=== PATIENT | female | born 1980 | race Asian ===

== ENCOUNTER 2017-07-23 12:43 | Emergency (ER) | payer MEDICAID ==
--- NOTE | 2017-07-23 14:19 | EDM.PDOC ---
ED HPI GENERAL MEDICAL PROBLEM - General Chief Complaint: Respiratory Problem Stated Complaint: DIFFICULTY BREATHING Time Seen by Provider: 07/23/17 12:59 Source of Information: Reports: Patient, RN Notes Reviewed - History of Present Illness INITIAL COMMENTS - FREE TEXT/NARRATIVE: 37 year old female with sensation of dyspnea, tightness across anterior chest, mild to moderate discomfort anterior chest with deep breathing. No cough, fever , chills or sore throat. No recent surgery. No leg swelling or discomfort. No abd pain, nausea or vomiting. Has been having similar sx off and on for more than 1 week, recently started on protonix. Upper Abdomen Pain Score (Numeric/FACES): 5 - Related Data Allergies Allergy/AdvReac Type Severity Reaction Status Date / Time No Known Allergies Allergy Verified 07/23/17 12:54 Home Meds: Home Meds Cholecalciferol (Vitamin D3) [Vitamin D] 1,000 unit PO DAILY 07/23/17 [History] L.acidoph,Paracasei, B.lactis [Probiotic] 1 cap PO DAILY 07/23/17 [History] Multivitamin [Daily Multiple Vitamin] 1 tab PO DAILY 07/23/17 [History] Pantoprazole Sodium [Protonix] 40 mg PO DAILY 07/23/17 [History] Past Medical History Gastrointestinal History: Reports: Helicobacter Pylori - Past Surgical History Female Surgical History: Reports: D&C, Other (See Below) Other 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 Denies: Wheezing, Cough, Hemoptysis Cardiovascular: Reports: Chest Pain (she does have some tightness across anterior chest without radiation) GI/Abdominal: Denies: Abdominal Pain Musculoskeletal: Reports: No Symptoms. Denies: Shoulder Pain, Arm Pain Skin: Reports: No Symptoms. Denies: Rash Neurological: Denies: Dizziness, Numbness, Tingling ED EXAM, GENERAL - Physical Exam Exam: See Below General Appearance: Alert, No Apparent Distress Eye Exam: Bilateral Eye: PERRL Throat/Mouth: Normal Inspection Neck: Supple, Full Range of Motion Respiratory/Chest: No Respiratory Distress, Lungs Clear, Normal Breath Sounds Cardiovascular: Regular Rate, Rhythm GI/Abdominal: Soft, Tender (mild tenderness upper mid abd) Back Exam: No: CVA Tenderness (L), CVA Tenderness (R) Extremities: Normal Inspection, Normal Range of Motion. No: Pedal Edema, Leg Pain Neurological: Alert, No Motor/Sensory Deficits Skin Exam: Warm, Dry, Normal Color Course - Vital Signs Last Recorded V/S: Last Vital Signs Temp 97.3 F 07/23/17 12:59 Pulse 65 07/23/17 12:59 Resp 20 07/23/17 12:59 BP 133/84 07/23/17 12:59 Pulse Ox 100 07/23/17 12:59 - Orders/Labs/Meds Labs: Laboratory Tests 07/23/17 07/23/17 07/23/17 Range/Units 13:40 13:40 13:40 WBC 7.19 (3.98-10.04) K/mm3 RBC 4.69 (3.98-5.22) M/mm3 Hgb 13.1 (11.2-15.7) gm/L Hct 39.5 (34.1-44.9) % MCV 84.2 (79.4-94.8) fl MCH 27.9 (25.6-32.2) pg MCHC 33.2 (32.2-35.5) g/dl RDW Std Deviation 42.4 (36.4-46.3) fL Plt Count 247 (182-369) K/mm3 MPV 10.4 (9.4-12.3) fl Neut % (Auto) 62.7 (34.0-71.1) % Lymph % (Auto) 28.0 (19.3-51.7) % [place] % (Auto) 8.1 (4.7-12.5) % Eos % (Auto) 0.6 L (0.7-5.8) Baso % (Auto) 0.3 (0.1-1.2) % Neut # (Auto) 4.52 (1.56-6.13) K/mm3 Lymph # (Auto) 2.01 (1.18-3.74) K/mm3 [place] # (Auto) 0.58 H (0.24-0.36) K/mm3 Eos # (Auto) 0.04 (0.04-0.36) K/mm3 Baso # (Auto) 0.02 (0.01-0.08) K/mm3 D-Dimer, Quantitative 0.44 (0.19-0.59) mg/L Troponin I < 0.017 (0.00-0.056) ng/mL - Re-Assessments/Exams Free Text/Narrative Re-Assessment/Exam: 07/26/17 10:15 WBC, D dimer, trop all normal, discharge instr. as documented. Departure - Departure Time of Disposition: 15:46 Disposition: Home, Self-Care 01 Condition: Fair Clinical Impression: Atypical chest pain - Discharge Information Instructions: Nonspecific Chest Pain, [id number] Referrals: Cynthia Coulter PA-C [Primary Care Provider] - Forms: ED Department Discharge Additional Instructions: continue protonix, probiotic for now, Your heart and lungs are checking out well today, echocardiogram, Radiology will call you tomorrow AM for appt. for that.
--- NOTE | 2017-07-24 08:00 | CR ---
Chest: Frontal view of the chest was obtained. Comparison: Prior chest x-ray is not available. Heart size and mediastinum are normal. Slight parenchymal density seen within the left midlung most likely due to confluence of vascular markings or atelectasis. Lungs otherwise are clear. Bony structures are grossly intact. Impression: 1. Nothing acute is appreciated on two-view chest x-ray. Diagnostic code #2
== END 2017-07-23 16:06 | disposition home or self-care (01) ==
LOC: JD.ED 12:43
DX: R07.89 Other chest pain (principal); F17.210 Nicotine dependence, cigarettes, uncomplicated; Z79.899 Other long term (current) drug therapy
CPT/HCPCS: 36415; 71045; 71045-26; 84484; 85025; 85379; 93005; 99283; 99285-25

== ENCOUNTER 2017-09-28 07:02 | Day surgery (SDC) | payer MEDICAID ==
[~2017-09-28 07:02] MED LIST: Lactated Ringers 1,000 ML IV SCH; Lidocaine 1%/Sod Bicarbonate in NS 8.4% 1 ML Syringe IDERM PRN; Sodium Chloride 0.9% 10 ML Syringe FLUSH PRN
[2017-09-28] MEDS ORDERED: Lidocaine 1% 4 ML ONE (07:13)
[2017-09-28] MEDS ORDERED: Propofol 200 MG/20 ML SDV ONE (07:14)
[2017-09-28] MEDS ORDERED: Midazolam 1 MG/ML 2 ML SDV ONE (07:14)
[2017-09-28] MEDS ORDERED: fentaNYL 100 MCG/2 ML SDV ONE (07:14)
--- NOTE | 2017-09-28 07:41 | PCM.PREANE ---
Preanesthetic Assessment - Procedure Proposed Procedure: diag egd and colonoscopy - Anesthesia/Transfusion/Family Hx Anesthesia History: Prior Anesthesia Without Reaction Family History of Anesthesia Reaction: No Transfusion History: No Prior Transfusion(s) - Review of Systems General: No Symptoms Pulmonary: Shortness of Breath (at rest periodically) Cardiovascular: Chest Pain (2-3 times a week), Palpitations (2-3 times a week) Gastrointestinal: Diarrhea Neurological: No Symptoms Other: Reports: Depression, Anxiety - Physical Assessment NPO Status Date: 09/27/17 NPO Status Time: 23:00 O2 Sat by Pulse Oximetry: 98 Respiratory Rate: 16 Vital Signs: Last Vital Signs Temp 98.7 F 09/28/17 07:10 Pulse 75 09/28/17 07:10 Resp 16 09/28/17 07:10 BP 136/77 09/28/17 07:10 Pulse Ox 98 09/28/17 07:10 Height: 5 ft 4 in Weight: 74.389 kg ASA Class: 2 Mental Status: Alert & Oriented x3 Airway Class: Mallampati = 1 Dentition: Reports: Normal Dentition Thyro-Mental Finger Breadths: 3 Mouth Opening Finger Breadths: 3 ROM/Head Extension: Full Lungs: Clear to Auscultation, Normal Respiratory Effort Cardiovascular: Regular Rate, Regular Rhythm - Lab Values: Laboratory Last Values Urine HCG, Qual Negative (NEGATIVE) 09/28/17 07:10 - Allergies Allergies/Adverse Reactions: Allergies Allergy/AdvReac Type Severity Reaction Status Date / Time cat dander Allergy Difficulty Verified 09/27/17 12:10 Breathing peanut Allergy Anaphylactic Verified 09/27/17 12:10 Shock - Blood Blood Available: No - Acknowledgements Anesthesia Type Planned: MAC Pt an Appropriate Candidate for the Planned Anesthesia: Yes Alternatives and Risks of Anesthesia Discussed w Pt/Guardian: Yes Pt/Guardian Understands and Agrees with Anesthesia Plan: Yes PreAnesthesia Questionnaire HEENT History: Reports: Impaired Vision, Other (See Below) (contacts are in- slept with them before) Cardiovascular History: Reports: Other (See Below) Other Cardiovascular History: chest pain, shortness of breath Respiratory History: Reports: SOB Gastrointestinal History: Reports: Helicobacter Pylori, Other (See Below) Other Gastrointestinal History: hematchezia, umbilical hernia Genitourinary History: Reports: Renal Calculus 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 Musculoskeletal History: Reports: None Neurological History: Reports: None Psychiatric History: Reports: Anxiety, Depression Endocrine/Metabolic History: Reports: None Hematologic History: Reports: None Immunologic History: Reports: None Oncologic (Cancer) History: Reports: None Dermatologic History: Reports: None - Past Surgical History Head Surgeries/Procedures: Reports: None HEENT Surgical History: Reports: None Respiratory Surgical History: Reports: None GI Surgical History: Reports: None Female Surgical History: Reports: D&C, Other (See Below) Other Female Surgeries/Procedures: urethral stent was placed during , removed shortly after Endocrine Surgical History: Reports: None Neurological Surgical History: Reports: None Musculoskeletal Surgical History: Reports: None Oncologic Surgical History: Reports: None Dermatological Surgical History: Reports: None - SUBSTANCE USE Smoking Status *Q: Current Every Day Smoker Tobacco Use Within Last Twelve Months: Cigarettes Second Hand Smoke Exposure: Yes Days Per Week of Alcohol Use: 0 (rarely) Recreational Drug Use History: No - HOME MEDS Home Medications: Home Meds Multivitamin [Daily Multiple Vitamin] 1 tab PO DAILY 07/23/17 [History] Pantoprazole Sodium [Protonix] 40 mg PO DAILY 07/23/17 [History] Albuterol Sulfate [Proair Hfa] 2 puff INH Q4H PRN 09/27/17 [History] Budesonide/Formoterol Fumarate [Symbicort 160-4.5 Mcg Inhaler] 2 puff INH BID [History] Calcium Carbonate [Calcium] 500 mg PO Q48H 09/27/17 [History] Cetirizine [ZyrTEC] 10 mg PO DAILY 09/27/17 [History] Cholecalciferol (Vitamin D3) [Vitamin D3] 2,000 unit PO Q48H 09/27/17 [History] Fish Oil/[place]-3 Fatty Acids [Fish Oil 1,000 MG] 1 gm PO Q48H 09/27/17 [History] LORazepam [Ativan] 0.5 mg PO TID PRN 09/27/17 [History] Montelukast [Singulair] 10 mg PO DAILY 09/27/17 [History] Triamcinolone Acetonide [Triamcinolone Acetonide 0.1% Oint] 1 dose TOP BID PRN 09/27/17 [History] - CURRENT (IN HOUSE) MEDS Current Meds: Current Medications Lactated Ringer's (Ringers, Lactated) 1,000 mls @ 125 mls/hr IV ASDIRECTED KASANDRA Stop: 09/28/17 23:00 Last Admin: 09/28/17 07:25 Dose: 125 mls/hr Lidocaine/Sodium Bicarbonate (Buffered Lidocaine 1% In Ns 8.4%) 0.25 ml IDERM ONETIME PRN PRN Reason: Prior to IV Start Stop: 09/28/17 18:00 Last Admin: 09/28/17 07:25 Dose: 0.25 ml Sodium Chloride (Saline Flush) 10 ml FLUSH ASDIRECTED PRN PRN Reason: Keep Vein Open Stop: 09/28/17 18:00 Discontinued Medications Fentanyl (Sublimaze) Confirm Administered Dose 100 mcg .ROUTE .STK-MED ONE Stop: 09/28/17 07:15 Lidocaine HCl (Xylocaine-Mpf 1%) Confirm Administered Dose 4 mls @ as directed .ROUTE .STK-MED ONE Stop: 09/28/17 07:14 Midazolam HCl (Versed 1 Mg/Ml) Confirm Administered Dose 2 mg .ROUTE .STK-MED ONE Stop: 09/28/17 07:15 Propofol (Diprivan 20 Ml) Confirm Administered Dose 400 mg .ROUTE .STK-MED ONE Stop: 09/28/17 07:15
--- NOTE | 2017-09-28 08:51 | PCM.OPNOTE ---
- General Post-Op/Procedure Note Date of Surgery/Procedure: 09/28/17 Operative Procedure(s): egd with bx/colonoscopy Pre Op Diagnosis: change in bowel habits and epigastric pain Post-Op Diagnosis: Same Anesthesia Technique: MAC Primary Surgeon: Arnold Stout EBL in mLs: 0 Complications: None Condition: Good
[2017-09-28] MEDS ORDERED: Ondansetron 4 MG/2 ML SDV IVPUSH PRN (08:56)
--- NOTE | 2017-09-28 08:58 | PCM48HPAN ---
Post Anesthesia Note - EVALUATION WITHIN 48HRS OF ANESTHETIC Vital Signs in Normal Range: Yes Patient Participated in Evaluation: Yes Respiratory Function Stable: Yes Airway Patent: Yes Cardiovascular Function Stable: Yes Hydration Status Stable: Yes Pain Control Satisfactory: Yes Nausea and Vomiting Control Satisfactory: Yes Mental Status Recovered: Yes Pulse Rate: 70 SaO2: 97 Resp Rate: 16 Temperature: 97.5 F Blood Pressure: 117/72
--- NOTE | 2017-09-28 09:38 | OR ---
DATE OF OPERATION: 09/28/2017 SURGEON: Arnold Stout MD PREOPERATIVE DIAGNOSIS: Epigastric pain. POSTOPERATIVE DIAGNOSIS: Epigastric pain. OPERATION PERFORMED: Esophagogastroduodenoscopy with biopsy done under IV sedation. FINDINGS: Second portion of the duodenum, duodenal bulb, pyloric channel were normal. Antrum, body, and cardia of the stomach and fundus did not show any pathology. Biopsies were done of the antrum looking for H. pylori because of previous history. J-maneuver showed just a very small sliding hiatal hernia at the GE junction. Scope was withdrawn at the GE junction, which was sharp and free of any acute pathology, located at 40 cm. Rest of the esophagus was viewed, the scope withdrawn, was normal. DESCRIPTION OF PROCEDURE: The patient was taken to the endoscopy room, placed in supine position, connected to monitoring equipment, given IV sedation. Placed in left lateral position. Bite block was inserted. Video Olympus gastroscope was placed in the posterior oropharynx, under direct vision threaded past the cricopharyngeus, down the esophagus, into the stomach. It was then advanced through the pylorus and 2nd portion of the duodenum, slowly withdrawn showing normal study as detailed above. J-maneuver was performed and biopsy of the antrum was done. The patient tolerated the procedure and IV sedation continued for colonoscopy. ANESTHESIA: ESTIMATED BLOOD LOSS: MMODAL /[id number]
--- NOTE | 2017-09-29 07:22 | OR ---
DATE OF OPERATION: 09/28/2017 SURGEON: Arnold Stout MD PREOPERATIVE DIAGNOSIS: Change in bowel habits. POSTOPERATIVE DIAGNOSIS: Change in bowel habits. OPERATION PERFORMED: Colonoscopy to cecum. FINDINGS: Normal study. DESCRIPTION OF PROCEDURE: The patient was taken to the endoscopy room and connected monitoring equipment, given IV sedation for upper GI endoscopy. This was continued for colonoscopy. The patient placed in left lateral position. Perianal area was inspected and was normal. Rectal exam showed good sphincter tone. Video Olympus colonoscope was then introduced into the rectum and threaded up without problem to the cecum, where the appendicular orifice and ileocecal valve were noted. Prep was excellent. [place] Cleansing score grade A and the scope throughout the colon. The scope was slowly withdrawn showing the cecum and beginning of the ileum. The ascending colon, transverse colon, descending colon, sigmoid colon, and rectum, all this was normal. The patient tolerated the procedure, sent to recovery room in a stable condition, will be followed up as needed in the clinic. ANESTHESIA: ESTIMATED BLOOD LOSS: MMODAL /[id number]
== END 2017-09-28 09:40 | disposition home or self-care (01) ==
LOC: JD.SDS 07:02
PROVIDERS: ATTEND Surgery
DX: R19.4 Change in bowel habit (principal); R10.13 Epigastric pain; K42.9 Umbilical hernia without obstruction or gangrene; F41.9 Anxiety disorder, unspecified; F32.9 Major depressive disorder, single episode, unspecified; Z87.891 Personal history of nicotine dependence; Z79.899 Other long term (current) drug therapy; Z91.010 Allergy to peanuts; Z91.048 Other nonmedicinal substance allergy status; Z98.890 Other specified postprocedural states
CPT/HCPCS: 00813; 81025; J2001; J2250; J2704; J3010; J7120

== ENCOUNTER 2018-06-04 10:34 | Emergency (ER) | payer MEDICAID ==
[2018-06-04] MEDS ORDERED: methylPREDNISolone Sodium Succinate 125 MG/2 ML SDV IVPUSH ONE (11:19)
[2018-06-04] MEDS ORDERED: Sodium Chloride 0.9% 1,000 ML IV ONE (11:19)
[2018-06-04] MEDS ORDERED: diphenhydrAMINE 50 MG/ML SDV IVPUSH ONE (11:19)
[2018-06-04] MEDS ORDERED: Famotidine 20 MG/2 ML SDV IVPUSH ONE (11:19)
[2018-06-04] MEDS ORDERED: Sodium Chloride 0.9% 10 ML Syringe FLUSH PRN (11:19)
--- NOTE | 2018-06-04 11:21 | EDM.PDOC ---
ED HPI GENERAL MEDICAL PROBLEM - General Chief Complaint: Allergic Reaction Stated Complaint: ALLERGIC RX Time Seen by Provider: 06/04/18 11:10 Source of Information: Reports: Patient History Limitations: Reports: Intoxication - History of Present Illness INITIAL COMMENTS - FREE TEXT/NARRATIVE: 38-year-old female presents for evaluation and treatment of an allergic reaction. Patient reports she has anaphylactic reaction to peanuts. She does not have an EpiPen, cites the cost is the concerned as to why she hasn't have this. She states that she Matthew food which reportedly did not have peanuts in it, however, acknowledges that the restaurant she was at uses peanuts. She reports that her lips feel swollen, she feels itchy and she feels that her throat is swelling. She denies any chest pain, nausea or vomiting. Denies any hives but has blotchiness to her face. No treatments prior to arrival in the ER. Primary care provider is Cynthia Coulter. Onset: Today - Related Data Allergies Allergy/AdvReac Type Severity Reaction Status Date / Time cat dander Allergy Difficulty Verified 06/04/18 10:40 Breathing peanut Allergy Anaphylactic Verified 06/04/18 10:40 Shock Home Meds: Home Meds Multivitamin [Daily Multiple Vitamin] 1 tab PO DAILY 07/23/17 [History] Pantoprazole Sodium [Protonix] 40 mg PO DAILY 07/23/17 [History] Albuterol Sulfate [Proair Hfa] 2 puff INH Q4H PRN 09/27/17 [History] Budesonide/Formoterol Fumarate [Symbicort 160-4.5 Mcg Inhaler] 2 puff INH BID [History] Calcium Carbonate [Calcium] 500 mg PO Q48H 09/27/17 [History] Cetirizine [ZyrTEC] 10 mg PO DAILY 09/27/17 [History] Cholecalciferol (Vitamin D3) [Vitamin D3] 2,000 unit PO Q48H 09/27/17 [History] Fish Oil/[place]-3 Fatty Acids [Fish Oil 1,000 MG] 1 gm PO Q48H 09/27/17 [History] LORazepam [Ativan] 0.5 mg PO TID PRN 09/27/17 [History] Montelukast [Singulair] 10 mg PO DAILY 09/27/17 [History] Triamcinolone Acetonide [Triamcinolone Acetonide 0.1% Oint] 1 dose TOP BID PRN 09/27/17 [History] EPINEPHrine [Epinephrine] 0.15 mg IJ ASDIRECTED PRN #2 auto.injct 06/04/18 [Rx] Famotidine [Pepcid] 20 mg PO DAILY #7 tab 06/04/18 [Rx] predniSONE [Prednisone] 20 mg PO BID #10 tablet 06/04/18 [Rx] Past Medical History HEENT History: Reports: Impaired Vision, Other (See Below) Cardiovascular History: Reports: Other (See Below) Other Cardiovascular History: chest pain, shortness of breath Respiratory History: Reports: SOB Gastrointestinal History: Reports: Helicobacter Pylori, Other (See Below) Other Gastrointestinal History: hematchezia, umbilical hernia Genitourinary History: Reports: Renal Calculus 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 Musculoskeletal History: Reports: None Neurological History: Reports: None Psychiatric History: Reports: Anxiety, Depression Endocrine/Metabolic History: Reports: None Hematologic History: Reports: None Immunologic History: Reports: None Oncologic (Cancer) History: Reports: None Dermatologic History: Reports: None - Past Surgical History Head Surgeries/Procedures: Reports: None HEENT Surgical History: Reports: None Respiratory Surgical History: Reports: None GI Surgical History: Reports: None Female Surgical History: Reports: D&C, Other (See Below) Other Female Surgeries/Procedures: urethral stent was placed during , removed shortly after Endocrine Surgical History: Reports: None Neurological Surgical History: Reports: None Musculoskeletal Surgical History: Reports: None Oncologic Surgical History: Reports: None Dermatological Surgical History: Reports: None Social & Family History - Tobacco Use Smoking Status *Q: Current Every Day Smoker Years of Tobacco use: 15 Packs/Tins Daily: 0.5 - Caffeine Use Caffeine Use: Reports: None - Recreational Drug Use Recreational Drug Use: No ED ROS ALLERGIC REACTION - Review of Systems Review Of Systems: See Below HEENT: Reports: Throat Swelling, Other (reports swelling to her lips) Respiratory: Denies: Shortness of Breath Cardiovascular: Denies: Chest Pain GI/Abdominal: Denies: Nausea, Vomiting Skin: Reports: Pruritis, Rash ED EXAM GENERAL NO PERIP PULSE - Physical Exam Exam: See Below Exam Limited By: No Limitations General Appearance: Alert, WD/WN, No Apparent Distress Throat/Mouth: Normal Inspection, Normal Voice, No Airway Compromise, Other ( minimal swelling to the lips, no uvula swelling, no horseness of voice) Head: Atraumatic, Normocephalic Neck: Normal Inspection Respiratory/Chest: No Respiratory Distress, Lungs Clear, Normal Breath Sounds Cardiovascular: Normal Peripheral Pulses, Regular Rate, Rhythm, No Murmur Neurological: Alert, Oriented, Normal Cognition Psychiatric: Normal Affect, Normal Mood Skin Exam: Warm, Dry, Normal Color, Rash (blotches and hive like rash to the anterior neck) Course - Vital Signs Last Recorded V/S: Last Vital Signs Temp 97.1 F 06/04/18 10:38 Pulse 90 06/04/18 14:32 Resp 18 06/04/18 14:32 BP 154/100 H 06/04/18 14:32 Pulse Ox 99 06/04/18 14:32 - Orders/Labs/Meds Orders: Active Orders 24 hr Category Date Time Status Cardiac Monitoring [RC] . DIRECTED Care 06/04/18 11:19 Active Peripheral IV Care [RC] . DIRECTED Care 06/04/18 11:19 Active Peripheral IV Insertion Adult [OM.PC] Routine Oth 06/04/18 11:19 Ordered Meds: Medications Discontinued Medications Generic Name Dose Route Start Last Admin Trade Name Freq PRN Reason Stop Dose Admin Diphenhydramine HCl 50 mg 06/04/18 11:19 06/04/18 11:36 Benadryl IVPUSH 06/04/18 11:20 50 mg ONETIME ONE Administration Famotidine 20 mg 06/04/18 11:19 06/04/18 11:36 Pepcid IVPUSH 06/04/18 11:20 20 mg ONETIME ONE Administration Sodium Chloride 1,000 mls @ 999 mls/hr 06/04/18 11:19 06/04/18 11:36 Normal Saline IV 06/04/18 12:19 999 mls/hr ONETIME ONE Administration Methylprednisolone Sodium Succinate 125 mg 06/04/18 11:19 06/04/18 11:35 Solu-Medrol IVPUSH 06/04/18 11:20 125 mg ONETIME ONE Administration Sodium Chloride 10 ml 06/04/18 11:19 06/04/18 11:36 Saline Flush FLUSH 10 ml ASDIRECTED PRN Administration Keep Vein Open - Re-Assessments/Exams Free Text/Narrative Re-Assessment/Exam: 06/04/18 13:19 Checked on the patient. Reports throat swelling has resolved. The hives some blotchiness to her chest have resolved. She said complains of swelling to her lips and has only minor swelling appreciated. Plan will be continue to monitor and give remainder of fluids. Will likely discharge home with prednisone, H2 martha and antihistamine 06/04/18 13:51 Symptoms have nearly completely resolved. Patient is anxious to go home. Will discharge home at this time. Discharge instructions as documented. Departure - Departure Time of Disposition: 13:51 Disposition: Home, Self-Care 01 Condition: Fair Clinical Impression: Allergic reaction - Discharge Information *PRESCRIPTION DRUG MONITORING PROGRAM REVIEWED*: No *COPY OF PRESCRIPTION DRUG MONITORING REPORT IN PATIENT SOLO: No Prescriptions: EPINEPHrine [Epinephrine] 0.15 mg IJ ASDIRECTED PRN #2 auto.injct PRN Reason: Allergies Famotidine [Pepcid] 20 mg PO DAILY #7 tab predniSONE [Prednisone] 20 mg PO BID #10 tablet Instructions: Food Allergy, [id number] Referrals: Cynthia Coulter PA-C [Primary Care Provider] - Forms: ED Department Discharge Additional Instructions: Use the EpiPen as prescribed. Inject 1 at onset of symptoms, repeat 5-15 minutes later if symptoms persist. Take the prednisone as prescribed. 1 tab twice a day for 10 days. Take the Pepcid as prescribed, 1 tab daily for 7 days. Recommend antihistamine such as Claritin, Meg or Zyrtec, these are available [id number]. Take these for the next 7 days. Follow-up with your primary care provider as needed. Make sure you are drinking plenty of fluids. Please return to the ER if your symptoms change or worsen. - My Orders Last 24 Hours: My Active Orders 06/04/18 11:19 Cardiac Monitoring [RC] . DIRECTED Peripheral IV Care [RC] . DIRECTED Peripheral IV Insertion Adult [OM.PC] Routine - Assessment/Plan Last 24 Hours: My Active Orders 06/04/18 11:19 Cardiac Monitoring [RC] . DIRECTED Peripheral IV Care [RC] . DIRECTED Peripheral IV Insertion Adult [OM.PC] Routine
== END 2018-06-04 14:34 | disposition home or self-care (01) ==
LOC: JD.ED 10:34
DX: T78.1XXA Other adverse food reactions, not elsewhere classified, initial encounter (principal); R22.0 Localized swelling, mass and lump, head; L50.0 Allergic urticaria; Z91.010 Allergy to peanuts; Z79.899 Other long term (current) drug therapy
CPT/HCPCS: 96361; 96374; 96375; 99284; J1200; J2930; J3490; J7040